=== PATIENT | female | born 1985 | race African-American/Black ===

== ENCOUNTER 2016-09-02 09:45 | Emergency (ER) | payer OTHER ==
[2016-09-02 09:49] VITALS: BMI 32.5
[2016-09-02] MEDS ORDERED: IBUPROFEN 600 MG TABLET (FP) PO ONE ×2 (10:18→10:19)
[2016-09-02 10:35] LABS: BASOPHIL 0.5 % (0-2.0); EOSINOPHIL 1.8 % (0-4.5); MCH 30.2 pg (25.7-33.7); MCHC 34.2 g/dl (32.0-36.0); MEAN CELL VOLUME 88.3 fl (80-96); MEAN PLT VOLUME 7.2 fl (7.5-11.1); NEUTROPHILS 44.9 % (42.8-82.8); PLATELET COUNT 265 K/MM3 (134-434); RDW 12.8 % (11.6-15.6); WHITE BLOOD COUNT 5.1 K/mm3 (4.0-10.0)
--- NOTE | 2016-09-02 12:42 | PDOC ---
History of Present Illness - General Chief Complaint: Vaginal Bleeding Stated Complaint: VAGINAL BLEEDING Time Seen by Provider: 09/02/16 10:07 History Source: Patient Exam Limitations: No Limitations - History of Present Illness Travel History: No Initial Comments: 09/02/16 11:58 HPI: This 31-year-old female presents to the emergency room with complaints of heavy vaginal bleeding. She had a menstrual period one month ago. She then had a menses days ago. She went to work and developed heavy vaginal bleeding 6 days with some clotting. She did not have any syncopal episode. She states that she has never had it this way before. She is . No recent miscarriage or Chief Compliant: Heavy vaginal bleeding PMH: Denies FH: Pt has not recently traveled outside the country in the last 30 days. Pt has not been in contact with people who have traveled out of the country, in contact with people who have been ill with fever, n, v, d. SH: smoking use: NONE illicit drug use: NONE alcohol use: NONE employment/educational status: sexual history: PSH: Hernia repair with mesh in 2014 Home med use noted on SEP Allergies: NKA Immunizations: PCP: Dr. Shelton STAIN DIPPER: Dr. Hodges LMP:currently starting 6 days ago. LMP prior to this is `08/01 Past History - Past Medical History Allergies/Adverse Reactions: Allergies Allergy/AdvReac Type Severity Reaction Status Date / Time No Known Allergies Allergy Verified 09/02/16 09:49 Home Medications: Ambulatory Orders NK [No Known Home Medication] 09/02/16 - Surgical History Abdominal Surgery: Yes - Psycho/Social/Smoking Cessation Hx Suicidal Ideation: No Smoking Status: No Smoking History: Never smoked Number of Cigarettes Smoked Daily: 0 Information on smoking cessation initiated: No Review of Systems - Review of Systems Able to Perform ROS?: Yes Comments:: 09/02/16 12:58 General statement: I have heavy vaginal bleeding Hematology: neg history of bleeding/blood thinners Skin: Neg for lesions, rash, bruising. HEENT: Neg symptoms Respiratory: Neg SOB or difficulty in breathing Cardiac: Neg chest pain GI: Neg pain, n/v : Neg problems on voiding MS: Neg for joint pain/stiffness, no edema Neuro: Neg for LOC, weakness, Endocrine: Neg for excess thirst/hunger, cold/heat intolerance, excess sweating Allergies: Neg for allergies *Physical Exam - Vital Signs Last Vital Signs Temp Pulse Resp BP Pulse Ox 98.1 F 107 H 18 141/96 98 09/02/16 09:46 09/02/16 09:46 09/02/16 09:46 09/02/16 09:46 09/02/16 09:46 - Physical Exam Comments: 09/02/16 12:59 General Appearance: This well appearing 31 year old obese black woman V/S: hemodynamically stable, afebrile Skin: WNL of pt's skin color, no signs of pallor, mottling, cyanosis Head:symmetrical Eyes: EOM's intact, PERRLA Ears: denies pain Nose: patent Throat: lips, teeth, gums, tongue, buccal mucos pink and moist Lungs: Chest symmetry equal. Cap refill <3 seconds. Lung sounds clear Cardiac: PMI at R 4MCL space, pos S1 and S2, regular rate. Abdomen: Soft, round, nontender but having cramping at lower abd area. : Not observed Muscularskeletal: Gait steady, ambulated in to ER, no edema +PMS Neuro: AAOx3, cognitively intact, speech clear and appropriate. ED Treatment Course - LABORATORY CBC & Chemistry Diagram: 09/02/16 10:25 - ADDITIONAL ORDERS Additional order review: Laboratory Results 09/02/16 09/02/16 10:25 10:25 Serum , Qual Negative Blood Type O POSITIVE Antibody Screen Negative 09/02/16 10:25 RBC 4.57 MCV 88.3 MCHC 34.2 RDW 12.8 MPV 7.2 L Neutrophils % 44.9 D Lymphocytes % 46.1 H D Monocytes % 6.7 Eosinophils % 1.8 Basophils % 0.5 - RADIOLOGY Radiology Studies Ordered: Category Date Time Status PELVIC / BLADDER US [US] Routine Ultrasound 09/02/16 Taken TRANSVAGINAL ULTRASOUND US [US] Stat Ultrasound 09/02/16 10:18 Ordered - Medications Given in the ED: ED Medications Discontinued Medications Generic Name Dose Route Start Last Admin Trade Name Freq PRN Reason Stop Dose Admin Ibuprofen 600 mg 09/02/16 10:19 09/02/16 10:36 Motrin - PO 09/02/16 10:20 Not Given ONCE ONE Medical Decision Making - Medical Decision Making 09/02/16 13:00 A/P: 31-year-old female with heavy vaginal bleeding 1. Transvaginal ultrasound for evaluation and possible fibroid. 2. Labs including hCG 09/02/16 13:01 Laboratory Tests 09/02/16 09/02/16 10:25 10:25 WBC 5.1 D Hgb 13.8 Hct 40.3 Plt Count 265 Serum , Qual Negative Transvaginal ultrasound shows thickening endometrial. Patient will be discharged at this time and told to follow-up with the STAIN DIPPER. *DC/Admit/Observation/Transfer Diagnosis at time of Disposition: Episode of heavy vaginal bleeding - Discharge Dispostion Disposition: HOME Condition at time of disposition: Good Admit: No - Referrals Referrals: STAFF,NOT ON [Primary Care Provider] - - Patient Instructions Printed Discharge Instructions: Heavy Menstrual Bleeding Additional Instructions: Discharge instructions 1. Please follow up with your primary physician within the next few days and explain that you have been seen here in the Emergency Room. Explain to your STAIN DIPPER that you have had a heavy menses and a report of a ultrasound to present to her. 2. If you experience any worsening of symptoms, such as lightheadness, please return to the ER 3. Rest, no sexual intercourse , 4. Drink plenty of water - Post Discharge Activity Work/School Note: Back to Work
[2016-09-02 12:47] LABS: URINE APPEARANCE CLEAR; URINE BILIRUBIN NEGATIVE (NEGATIVE); URINE COLOR LTYELLOW; URINE GLUCOSE (UA) NEGATIVE (NEGATIVE); URINE KETONE NEGATIVE (NEGATIVE); URINE LEUK ESTERASE NEGATIVE (NEGATIVE); URINE NITRITE NEGATIVE (NEGATIVE); URINE PROTEIN NEGATIVE (NEGATIVE); URINE UROBILINOGEN NEGATIVE E.U./dl (0.2-1.0)
[2016-09-02 12:48] LABS: URINE BLOOD 2+ (NEGATIVE)
[2016-09-02 12:49] LABS: URINE MUCUS FEW; URINE RBC 37 /hpf (0-3); URINE WBC <1 /hpf (3-5)
[2016-09-02 13:02] VITALS: BP 153/85; PULSE 85; TEMP 97.7
== END 2016-09-02 13:02 | disposition home or self-care (01) ==
LOC: JER 09:45
DX: N93.9 Abnormal uterine and vaginal bleeding, unspecified (principal)
CPT/HCPCS: 36415; 76830-TC; 76856-TC; 81003; 81015; 84703; 85025; 86850; 86900; 86901; 99283-25

== ENCOUNTER 2016-11-18 19:07 | Emergency (ER) | payer OTHER ==
[2016-11-18 19:38] VITALS: BP 132/80; PULSE 87; TEMP 97.8; BMI 32.5
[2016-11-18 21:11] LABS: BASOPHIL 0.6 % (0-2.0); EOSINOPHIL 0.2 % (0-4.5); MCH 29.2 pg (25.7-33.7); MCHC 33.1 g/dl (32.0-36.0); MEAN CELL VOLUME 88.1 fl (80-96); MEAN PLT VOLUME 7.1 fl (7.5-11.1); NEUTROPHILS 73.9 % (42.8-82.8); PLATELET COUNT 289 K/MM3 (134-434); RDW 13.1 % (11.6-15.6); WHITE BLOOD COUNT 7.9 K/mm3 (4.0-10.0)
[2016-11-18 21:36] LABS: ALBUMIN 4.2 g/dl (3.4-5.0); ALK PHOS 65 U/L (45-117); ANION GAP 7 (8-16); BILIRUBIN,TOTAL 0.4 mg/dL (0.2-1.0); CALCIUM 9.2 mg/dL (8.5-10.1); CO2 28 mmol/L (21-32); CREATININE 0.7 mg/dL (0.55-1.02); GLUCOSE,RANDOM 127 mg/dL (74-106); SGOT/AST 18 U/L (15-37); SGPT/ALT 31 U/L (12-78); TOT PROT 7.6 g/dl (6.4-8.2)
--- NOTE | 2016-11-18 21:58 | PDOC ---
History of Present Illness - General History Source: Patient Exam Limitations: No Limitations - History of Present Illness Initial Comments: 11/18/16 22:09 The patient is a 31 year old female with significant past medical history of migraine headaches who presents to the ED for worsening migraine headache. Patient reports long history of migraine headache, which she follows up with Dr. Estrada. States she went today for botox injections for relief of her migranes, but still no relief. Patient reports she went to Dr. Barrett office last week for steroid injections with no relief. She also has complaints of mild abdominal discomfort and nausea, but no vomiting. Denies dizziness or photophobia. States her stomach is sensitive and that most food and medications causes irritation and thus results in vomiting. The patient denies fever, chills, cough, SOB, chest pain, and diarrhea. Allergies: NKDA Social History: No alcohol, tobacco, or drug use reported. Past Surgical History: Hernia repair with mesh in 2014 PCP: Dr. Shelton Neurologist: Dr. Jhonny Estrada <Daniela Lewis - Last Filed: 11/18/16 22:09> - General History Source: Patient <LoMihai - Last Filed: 11/18/16 23:12> - General Chief Complaint: Migraine Headache Stated Complaint: PCP SENT/MIGRAINE Time Seen by Provider: 11/18/16 21:53 Past History <Daniela Lewis - Last Filed: 11/18/16 22:09> - Past Medical History Other medical history: botox injections - Surgical History Abdominal Surgery: Yes - Psycho/Social/Smoking Cessation Hx Suicidal Ideation: No Smoking Status: No Smoking History: Never smoked Have you smoked in the past 12 months: No Number of Cigarettes Smoked Daily: 0 Information on smoking cessation initiated: No Hx Alcohol Use: No Drug/Substance Use Hx: No <Mihai Blanchard - Last Filed: 11/18/16 23:12> - Past Medical History Allergies/Adverse Reactions: Allergies Allergy/AdvReac Type Severity Reaction Status Date / Time No Known Allergies Allergy Verified 11/18/16 19:37 Home Medications: Ambulatory Orders Acetaminophen/Caffeine/Butalb [Fioricet -] 1 tab PO Q6H #28 tablet MDD 4 Ibuprofen 800 mg PO TID #30 tablet 05/17/17 Metoclopramide HCl [Reglan -] 10 mg PO TID #30 tablet 11/18/16 Review of Systems - Review of Systems Able to Perform ROS?: Yes Comments:: 11/18/16 22:09 CONSTITUTIONAL: Absent: fever, no chills, no fatigue EYES: Absent: visual changes ENT: Absent: ear pain, no sore throat CARDIOVASCULAR: Absent: chest pain, no palpitations RESPIRATORY: Absent: cough, no SOB GI: +abdominal discomfort, nausea Absent: no vomiting, no constipation, no diarrhea GENITOURINARY: Absent: dysuria, no frequency, no hematuria MUSCULOSKELETAL: Absent: back pain, no arthralgia, no myalgia SKIN: Absent: rash NEURO: +headache <Daniela Lewis - Last Filed: 11/18/16 22:09> *Physical Exam - Vital Signs Last Vital Signs Temp Pulse Resp BP Pulse Ox 97.8 F 87 18 132/80 99 11/18/16 19:35 11/18/16 19:35 11/18/16 19:35 11/18/16 19:35 11/18/16 19:35 - Physical Exam Comments: 11/18/16 22:09 GENERAL: Well-appearing, well-nourished. No apparent distress. HEENT: Normocephalic, atraumatic. PERRL, EOM intact. CARDIOVASCULAR: Normal S1, S2. Regular rate and rhythm. PULMONARY: Clear to auscultation bilaterally. ABDOMEN: Soft, non-distended, non-tender. EXTREMITIES: Normal ROM in all four extremities. No gross deformities. SKIN: Warm, dry. No rash NEUROLOGICAL: No focal neurological deficits. <Daniela Lewis - Last Filed: 11/18/16 22:09> - Vital Signs Last Vital Signs Temp Pulse Resp BP Pulse Ox 97.8 F 87 18 132/80 99 11/18/16 19:35 11/18/16 19:35 11/18/16 19:35 11/18/16 19:35 11/18/16 19:35 <Mihai Blnachard - Last Filed: 11/18/16 23:12> ED Treatment Course - LABORATORY CBC & Chemistry Diagram: 11/18/16 21:00 11/18/16 21:00 - ADDITIONAL ORDERS Additional order review: Laboratory Results 11/18/16 11/18/16 21:00 21:00 Sodium 141 Potassium 4.4 Chloride 106 Carbon Dioxide 28 D Anion Gap 7 L BUN 10 D Creatinine 0.7 D Creat Clearance w eGFR > 60 Random Glucose 127 H Calcium 9.2 Total Bilirubin 0.4 AST 18 D ALT 31 Alkaline Phosphatase 65 D Total Protein 7.6 Albumin 4.2 Serum , Qual Negative 11/18/16 21:00 RBC 4.66 MCV 88.1 MCHC 33.1 RDW 13.1 MPV 7.1 L Neutrophils % 73.9 D Lymphocytes % 20.3 D Monocytes % 5.0 Eosinophils % 0.2 D Basophils % 0.6 <Daniela Lewis - Last Filed: 11/18/16 22:09> - LABORATORY CBC & Chemistry Diagram: 11/18/16 21:00 11/18/16 21:00 - ADDITIONAL ORDERS Additional order review: Laboratory Results 11/18/16 11/18/16 21:00 21:00 Sodium 141 Potassium 4.4 Chloride 106 Carbon Dioxide 28 D Anion Gap 7 L BUN 10 D Creatinine 0.7 D Creat Clearance w eGFR > 60 Random Glucose 127 H Calcium 9.2 Total Bilirubin 0.4 AST 18 D ALT 31 Alkaline Phosphatase 65 D Total Protein 7.6 Albumin 4.2 Serum , Qual Negative 11/18/16 21:00 RBC 4.66 MCV 88.1 MCHC 33.1 RDW 13.1 MPV 7.1 L Neutrophils % 73.9 D Lymphocytes % 20.3 D Monocytes % 5.0 Eosinophils % 0.2 D Basophils % 0.6 <Mihai Blanchard - Last Filed: 11/18/16 23:12> Medical Decision Making - Medical Decision Making 11/18/16 23:11 Dr. Blanchard: The scribe's documentation has been prepared under my direction and personally reviewed by me in its entirery. I confirm that the note above accurately reflects all work, treatment, procedures, and medical decision making performed by me. Pt feels better after treatment in the department. Pt will be discharge and follow up with her neurologist <Mihai Blanchard - Last Filed: 11/18/16 23:12> *DC/Admit/Observation/Transfer - Attestations Scribe Attestion: 11/18/16 22:09 Documentation prepared by Daniela Lewis, acting as medical laboratory technicians for Mihai Blanchard MD/DO. <Daniela Lewis - Last Filed: 11/18/16 22:09> - Discharge Dispostion Admit: No <Mihai Blanchard - Last Filed: 11/18/16 23:12> Diagnosis at time of Disposition: Migraine Qualifiers: Migraine type: other Status migrainosus presence: without status migrainosus Intractability: not intractable Qualified Code(s): G43.809 - Other migraine, not intractable, without status migrainosus - Discharge Dispostion Disposition: HOME Condition at time of disposition: Stable - Prescriptions Prescriptions: Acetaminophen/Caffeine/Butalb [Fioricet -] 1 tab PO Q6H #28 tablet MDD 4 Ibuprofen 800 mg PO TID #30 tablet Metoclopramide HCl [Reglan -] 10 mg PO TID #30 tablet - Referrals Referrals: STAFF,NOT ON [Primary Care Provider] - Ceasar House MD [Staff Physician] - - Patient Instructions Printed Discharge Instructions: DI for Migraine
[2016-11-18] MEDS ORDERED: KETOROLAC TROMETHAMINE 30 MG/1 ML VIAL IVPUSH ONE (21:59)
[2016-11-18] MEDS ORDERED: METOCLOPRAMIDE HCL INJECTION 10 MG/2 ML VIAL IVPUSH ONE (21:59)
[2016-11-18] MEDS ORDERED: METOCLOPRAMIDE HCL INJECTION 10 MG/2 ML VIAL ONE (22:12)
[2016-11-18] MEDS ORDERED: KETOROLAC TROMETHAMINE 30 MG/1 ML VIAL ONE (22:13)
== END 2016-11-18 23:36 | disposition home or self-care (01) ==
LOC: JER 19:07
PROC: 3E0333Z Introduction of Anti-inflammatory into Peripheral Vein, Percutaneous Approach (ICD-10-PCS; principal; 2016-11-18)
DX: G43.809 Other migraine, not intractable, without status migrainosus (principal)
CPT/HCPCS: 36415; 80053; 84703; 85025; 99281-25

== ENCOUNTER 2017-08-30 14:27 | Emergency (ER) | payer OTHER ==
--- NOTE | 2017-08-30 14:31 | PDOC ---
Rapid Medical Evaluation Time Seen by Provider: 08/30/17 14:29 Medical Evaluation: Allergies Allergy/AdvReac Type Severity Reaction Status Date / Time No Known Allergies Allergy Verified 11/18/16 19:37 08/30/17 14:29 I have performed a brief in person evaluation of this patient. The patient presents with chief complaint of : left lower quadrant pain radiates to flank. LMP 4 weeks ago . pt has history of kidney stones, feels similair. Pertinent PE findings: none, pt appears comfortable I have ordered the following: UA, urine preg, urine culture The patient will proceed to the ER for further evaluation.
[2017-08-30 14:33] VITALS: BMI 31.6
[2017-08-30 15:39] LABS: URINE APPEARANCE CLEAR; URINE BILIRUBIN NEGATIVE (NEGATIVE); URINE BLOOD NEGATIVE (NEGATIVE); URINE COLOR YELLOW; URINE GLUCOSE (UA) NEGATIVE (NEGATIVE); URINE KETONE NEGATIVE (NEGATIVE); URINE LEUK ESTERASE NEGATIVE (NEGATIVE); URINE NITRITE NEGATIVE (NEGATIVE); URINE PROTEIN NEGATIVE (NEGATIVE)
--- NOTE | 2017-08-30 16:26 | PDOC ---
History of Present Illness - General Chief Complaint: Pain, Acute Stated Complaint: KIDNEY PAIN Time Seen by Provider: 08/30/17 14:29 - History of Present Illness Initial Comments: 08/30/17 16:19 32 y.o. female with a PMH of nephrolithiasis (last episode 8 months previous) who presents to our ED c/o 3 day h/o of intermittent, cramping, 4/10, L flank pain that radiates into her groin. Patient denies any associated dysuria/ hematuria, fever/chills, nausea/vomiting, diarrhea/constipation. Patient's LMP was 08/19 and she denies any possibility of . NKDA Surgical: C/S x2, Ventral Hernia Repair Social: denies alcohol, denies nicotine, denies recreational drugs Past History - Past Medical History Allergies/Adverse Reactions: Allergies Allergy/AdvReac Type Severity Reaction Status Date / Time No Known Allergies Allergy Verified 08/30/17 14:30 COPD: No Disorders: Yes (kidney stones) Psychiatric Problems: Yes (anxiety) - Surgical History Abdominal Surgery: Yes (hernia) - Immunization History Immunization Up to Date: Yes - Suicide/Smoking/Psychosocial Hx Smoking Status: No Smoking History: Never smoked Have you smoked in the past 12 months: No Number of Cigarettes Smoked Daily: 0 Information on smoking cessation initiated: No Hx Alcohol Use: No Drug/Substance Use Hx: No Substance Use Type: None Review of Systems - Review of Systems Constitutional: No: Chills, Fever HEENTM: No: Blurred Vision, Double Vision Respiratory: No: Cough, Shortness of Breath Cardiac (ROS): No: Chest Pain, Lightheadedness, Palpitations, Syncope ABD/GI: No: Constipated, Diarrhea, Nausea, Vomiting : Yes: Flank Pain. No: Burning, Dysuria Neurological: No: Headache, Numbness Psychiatric: No: Anxiety, Depression *Physical Exam - Vital Signs Last Vital Signs Temp Pulse Resp BP Pulse Ox 98.6 F 90 18 118/84 100 08/30/17 14:30 08/30/17 14:30 08/30/17 14:30 08/30/17 14:30 08/30/17 14:30 - Physical Exam Comments: 08/30/17 18:52 GENERAL: Awake, alert, and fully oriented, in no acute distress HEAD: No signs of trauma EYES: PERRLA, EOMI, sclera anicteric, conjunctiva clear ENT: Auricles normal inspection, Moist mucosa NECK: Normal ROM, supple, no lymphadenopathy, JVD, or masses LUNGS: Breath sounds equal, clear to auscultation bilaterally. No wheezes, and no crackles HEART: Regular rate and rhythm, normal S1 and S2, no murmurs, rubs or gallops ABDOMEN: RLQ TTP on deep palpation, Soft, normoactive bowel sounds. No guarding , no rebound. No masses EXTREMITIES: Normal range of motion, no edema. No clubbing or cyanosis. BACK: No midline spinal tenderness in cervical/thoracic/lumbar region NEUROLOGICAL: A&O x3, non-ataxic, non-antalgic gait SKIN: Warm, Dry, normal turgor, no rashes or lesions noted. ED Treatment Course - ADDITIONAL ORDERS Additional order review: Laboratory Results 08/30/17 15:20 Urine Color Yellow Urine Appearance Clear Urine pH 5.0 Ur Specific [place] 1.027 Urine Protein Negative Urine Glucose (UA) Negative Urine Ketones Negative Urine Blood Negative Urine Nitrite Negative Urine Bilirubin Negative Urine Urobilinogen 2.0 H Ur Leukocyte Esterase Negative Medical Decision Making - Medical Decision Making 08/30/17 17:23 32 y.o. female who presents with a c/o L sided flank pain that radiates to her groin, however on PE patient has mild tenderness to palpation in epigastrium. UA ordered in triage shows no WBC, Leukocyte Esterase (-), Nitrite (-). Will obtain renal U/S to r/o nephrolithiasis. 08/30/17 18:28 Renal U/S shows no hydronephrosis, nephrolithiasis, or acute pathology. Patient ambulatory around unit, expresses desire for discharge. Patient counseled on return precautions and instructed to follow-up with PCP. I discussed the physical exam findings, ancillary test results and final diagnoses with the patient. I answered all of the patient's questions. The patient was satisfied with the care received and felt comfortable with the discharge plan and treatment plan. The patient will return to the Emergency Department with any new, persistent or worsening symptoms. *DC/Admit/Observation/Transfer Diagnosis at time of Disposition: Flank pain - Discharge Dispostion Disposition: HOME Condition at time of disposition: Good Admit: No - Referrals Referrals: ON STAFF,NOT [Primary Care Provider] - - Patient Instructions Printed Discharge Instructions: DI for Abdominal Pain-Adult, DI for Flank Pain Additional Instructions: You were evaluated today for flank pain that radiated to your groin. All of your labs as well as your ultrasound showed no concerning findings. Follow up with your primary care doctor for further evaluation in the next 3 days. Please return to the Emergency Department for any new/worsening/concerning symptoms. - Post Discharge Activity
[2017-08-30 18:36] VITALS: BP 110/71; PULSE 72; TEMP 98.4
[2017-08-31 08:48] LABS: HCG,QUALITATIVE URINE NEGATIVE
== END 2017-08-30 18:37 | disposition home or self-care (01) ==
LOC: JER 14:27
DX: R10.32 Left lower quadrant pain (principal); F41.9 Anxiety disorder, unspecified
CPT/HCPCS: 76775-TC; 81003; 84703; 87086; 99284-25

== ENCOUNTER 2019-03-30 12:22 | Emergency (ER) | payer OTHER ==
[2019-03-30 12:34] VITALS: BP 128/83; PULSE 89; TEMP 98.3; BMI 31.1
--- NOTE | 2019-03-30 13:01 | PDOC ---
History of Present Illness - General Chief Complaint: Lightheaded Stated Complaint: HYPERTENSION Time Seen by Provider: 03/30/19 12:46 History Source: Patient Exam Limitations: No Limitations - History of Present Illness Initial Comments: 03/30/19 12:59 34y F hx of migraine headache presents with complaint of dizziness. Pt was in her usual state of health until she was at school and suddenly felt lightheadd, lsating for a few min before resolving. Pt denies any associated vision changes , headache, palpitations, chest pain, n/v, diarrhea, melena, bpr, abd pain, back pain, neck pain, vertigo. Pt is curently asymptomatic. Pt has had episodes of syncop in the past where she felt the same, but there was no syncope today.. P note she is currently on her menses. Pt does endorse a mild presur elike R side headache currently. Past History - Past Medical History Allergies/Adverse Reactions: Allergies Allergy/AdvReac Type Severity Reaction Status Date / Time No Known Allergies Allergy Verified 03/30/19 12:34 COPD: No Disorders: Yes (kidney stones) Psychiatric Problems: Yes (anxiety) - Surgical History Abdominal Surgery: Yes (hernia) - Immunization History Immunization Up to Date: Yes - Psycho Social/Smoking Cessation Hx Smoking Status: No Smoking History: Never smoked Have you smoked in the past 12 months: No Number of Cigarettes Smoked Daily: 0 Information on smoking cessation initiated: No Hx Alcohol Use: No Drug/Substance Use Hx: No Substance Use Type: None Review of Systems - Review of Systems Able to Perform ROS?: Yes Comments:: 03/30/19 13:55 Constitutional - no reported Fever, Chills, HEENT: no reported vision changes, sore throat Respiratory: no reported cough, sob, hemoptysis Cardiac: no reported chest pain, palpitations, light headedness, leg swelling Abd/GI: no reported abd pain, nausea, vomiting, blood per rectum, melena, diarrhea : no reported dysuria, frequency, discharge Musculskelatal - no reported back pain, joint swelling skin - no reported bruising, erythema, rash neurological: no reported headache, numbness, focal weakness, tingling, ataxia, hematologic: no reported easy bruising, easy bleeding *Physical Exam - Vital Signs Last Vital Signs Temp Pulse Resp BP Pulse Ox 98.3 F 89 18 128/83 98 03/30/19 12:29 03/30/19 12:29 03/30/19 12:29 03/30/19 12:29 03/30/19 12:29 - Physical Exam Comments: 03/30/19 13:56 GENERAL: The patient is awake, alert, and fully oriented, Nontoxic - in no acute distress. HEAD: Normocephalic, atraumatic. EYES: extraocular movements intact, sclera anicteric, conjunctiva clear. ENT: Normal voice, Moist mucous membranes. NECK: Normal range of motion, supple LUNGS: Breath sounds equal, clear to auscultation bilaterally. No wheezes, no rhonchi, no rales. HEART: Regular rate and rhythm, normal S1 and S2 without murmur, rub or gallop. ABDOMEN: Soft, nontender, No guarding, no rebound. No CVA tenderness EXTREMITIES: Normal range of motion, no edema. NEUROLOGICAL: No facial assymetry, Normal speech, PSYCH: Normal mood, normal affect. SKIN: Warm, Dry, normal turgor, Heart Score/ECG Review - ECG Impressions Comment:: 03/30/19 15:23 Twelve-lead EKG was performed and reviewed by me. There is normal sinus rhythm with a normal rate. The axis is normal. rate of 82 qtc of [address] changes ED Treatment Course - LABORATORY CBC & Chemistry Diagram: 03/30/19 13:52 03/30/19 13:52 Medical Decision Making - Medical Decision Making 03/30/19 13:56 posible mild vagal episode will ck basic labs to r/o anemia, metabolic derangement, ekg to screen for arrtyhmia Discharge - Discharge Information Problems reviewed: Yes Clinical Impression/Diagnosis: Lightheaded Condition: Improved Disposition: HOME - Admission No - Follow up/Referral Referrals: Rafy Torres MD [Primary Care Provider] - - Patient Discharge Instructions Patient Printed Discharge Instructions: DI for Syncope in Adults (Fainting) Additional Instructions: Return to the emergency department immediately with ANY new, persistent or worsening symptoms. You MUST call and follow up with your doctor tomorrow for further evaluation of your symptoms. Results were discussed with you. Please make sure your doctor reviews the results of your emergency evaluation. Your Emergency Department visit is not complete without a follow up with your doctor. If you had any xrays during your visit, it was read preliminarily by myself, a Radiologist will review it and if there are any additional findings we will call you. Print Language: [place]THER[place] IRISH - Post Discharge Activity
[2019-03-30] MEDS ORDERED: METOCLOPRAMIDE HCL INJECTION 10 MG/2 ML VIAL IVPUSH ONE (13:05)
[2019-03-30] MEDS ORDERED: METOCLOPRAMIDE HCL 10 MG TABLET (FP) PO ONE (13:33)
--- NOTE | 2019-03-30 13:58 | EKG ---
Test Reason : Blood Pressure : / mmHG Vent. Rate : 082 BPM Atrial Rate : 082 BPM P-R Int : 172 ms QRS Dur : 102 ms QT Int : 424 ms P-R-T Axes : 053 -01 030 degrees QTc Int : 495 ms NORMAL SINUS RHYTHM MINIMAL VOLTAGE CRITERIA FOR LVH, MAY BE NORMAL VARIANT NONSPECIFIC ST AND T WAVE ABNORMALITY PROLONGED QT ABNORMAL ECG NO PREVIOUS ECGS AVAILABLE Confirmed by SUKHI HANSON MD ([id number]) on 03/30/2019 1:58:00 PM Referred By: Confirmed By:SUKHI HANSON MD
[2019-03-30 14:04] LABS: BASO % 0.6 % (0-2.0); EOS % 1.1 % (0-4.5); HEMATOCRIT 37.5 % (32.4-45.2); HEMOGLOBIN 12.9 GM/dL (10.7-15.3); LYMPH % 26.9 % (8-40); MCH 30.6 pg (25.7-33.7); MCHC 34.4 g/dl (32.0-36.0); MEAN CELL VOLUME 88.9 fl (80-96); MEAN PLT VOLUME 7.1 fl (7.5-11.1); MONO % 6.5 % (3.8-10.2); NEUT % 64.9 % (42.8-82.8); PLATELET COUNT 280 K/MM3 (134-434); RBC 4.22 M/mm3 (3.60-5.2); RDW 13.7 % (11.6-15.6); WHITE BLOOD COUNT 6.1 K/mm3 (4.0-10.0)
[2019-03-30] MEDS ORDERED: ONDANSETRON *ODT* 4 MG TABLET ONE (14:37)
[2019-03-30 14:39] LABS: ALBUMIN 4.1 g/dl (3.4-5.0); BILIRUBIN,TOTAL 0.2 mg/dL (0.2-1); BLOOD UREA NITROGEN 9.7 mg/dL (7-18); CALCIUM 9.1 mg/dL (8.5-10.1); CREATININE 0.7 mg/dL (0.55-1.3); POTASSIUM 4.1 mmol/L (3.5-5.1); TOT PROT 7.1 g/dl (6.4-8.2)
== END 2019-03-30 15:47 | disposition home or self-care (01) ==
LOC: JER 12:22
DX: R42 Dizziness and giddiness (principal); I10 Essential (primary) hypertension; F41.9 Anxiety disorder, unspecified; Z87.442 Personal history of urinary calculi
CPT/HCPCS: 36415; 80053; 84703; 85025; 93005; 93010; 99283-25

== ENCOUNTER 2020-07-03 12:05 | Emergency (ER) | payer OTHER ==
[2020-07-03 12:20] VITALS: BP 123/86; PULSE 74; TEMP 97.9; BMI 31.6
[2020-07-03] MEDS ORDERED: METOCLOPRAMIDE HCL INJECTION 10 MG/2 ML VIAL IVPB ONE (12:29)
[2020-07-03] MEDS ORDERED: MAG HYDROX/AL HYDROX/SIMETH -MYLANTA- ORAL SUSPENSION PO ONE (12:31)
[2020-07-03] MEDS ORDERED: METOCLOPRAMIDE HCL INJECTION 10 MG/2 ML VIAL ONE (12:33)
[2020-07-03] MEDS ORDERED: MAG HYDROX/AL HYDROX/SIMETH 30 ML UNIT-DOSE CUP ONE (12:33)
== END 2020-07-03 13:02 | disposition home or self-care (01) ==
LOC: JERFT 12:05
PROC: 3E033GC Introduction of Other Therapeutic Substance into Peripheral Vein, Percutaneous Approach (ICD-10-PCS; principal; 2020-07-03)
DX: R51.9 Headache, unspecified (principal)
CPT/HCPCS: 99284-25

== ENCOUNTER 2022-01-10 20:57 | Emergency (ER) | payer OTHER ==
[2022-01-10 21:18] VITALS: BP 140/86; PULSE 80; TEMP 98.2; BMI 32.1
[2022-01-10] MEDS ORDERED: FAMOTIDINE 20 MG TABLET PO ONE (23:52)
[2022-01-10] MEDS ORDERED: CIPROFLOXACIN 500 MG TABLET (RESTRICTED TO ID) PO ONE (23:52)
[2022-01-10] MEDS ORDERED: LOPERAMIDE HCL 2 MG CAPSULE PO ONE (23:52)
[2022-01-11] MEDS ORDERED: FAMOTIDINE 20 MG TABLET ONE (00:04)
[2022-01-11] MEDS ORDERED: LOPERAMIDE HCL 2 MG CAPSULE ONE (00:06)
== END 2022-01-11 00:20 | disposition home or self-care (01) ==
LOC: JER 20:57
DX: R19.7 Diarrhea, unspecified (principal)
CPT/HCPCS: 99283-25

== ENCOUNTER 2024-04-03 00:26 | Emergency (ER) | payer OTHER ==
[2024-04-03 00:42] VITALS: BP 141/89; PULSE 89; RESP 18; TEMP 98.4; BMI 32.5
[2024-04-03 02:12] LABS: BASO % 0.7 % (0-2.0); EOS % 2.8 % (0-4.5); HEMOGLOBIN 10.9 GM/dL (10.7-15.3); LYMPH % 31.4 % (8-40); MCH 26.2 pg (25.7-33.7); MEAN CELL VOLUME 79.3 fl (80-96); MEAN PLT VOLUME 6.4 fl (7.5-11.1); MONO % 7.8 % (3.8-10.2); NEUT % 57.3 % (42.8-82.8); PLATELET COUNT 308 10^3/uL (134-434); RBC 4.16 M/mm3 (3.60-5.2); RDW 16.2 % (11.6-15.6); WHITE BLOOD COUNT 6.1 K/mm3 (4.0-10.0)
[2024-04-03 02:37] LABS: POTASSIUM 3.7 mmol/L (3.5-5.1)
[2024-04-03 02:40] LABS: ALBUMIN 3.5 g/dl (3.4-5.0); BLOOD UREA NITROGEN 11.4 mg/dL (7-18); CALCIUM 8.6 mg/dL (8.5-10.1)
[2024-04-03 02:43] LABS: CREATININE 0.7 mg/dL (0.55-1.3)
[2024-04-03 02:45] LABS: BILIRUBIN,TOTAL 0.2 mg/dL (0.2-1); TOT PROT 6.7 g/dl (6.4-8.2)
== END 2024-04-03 03:38 | disposition home or self-care (01) ==
LOC: JER 00:26
DX: R07.2 Precordial pain (principal); Z20.822 Contact with and (suspected) exposure to COVID-19
CPT/HCPCS: 0241U-QW; 36415; 71046-TC-FY; 80053; 84484; 84703; 85025; 93005; 93010; 99285-25

== ENCOUNTER 2025-04-23 15:30 | Day surgery (SDC) | payer OTHER ==
[2025-04-23] MEDS: ONDANSETRON 4 MG TABLET PO ONE (16:09)
[2025-04-23] MEDS: FERRIC CARBOXYMALTOSE 750 MG in SODIUM CHLORIDE 250 ML IVPB ONE (16:18)
[2025-04-23 16:44] VITALS: TEMP 98.3
[2025-04-23 17:17] VITALS: BP 115/71; PULSE 60; RESP 20
== END 2025-04-23 17:22 | disposition home or self-care (01) ==
LOC: J7W 15:30 → JONCNONCHE 15:30
PROVIDERS: ATTEND Internal Medicine Hematology & Oncology
PROC: 3E033GC Introduction of Other Therapeutic Substance into Peripheral Vein, Percutaneous Approach (ICD-10-PCS; principal; 2025-04-23)
DX: D50.9 Iron deficiency anemia, unspecified (principal)
CPT/HCPCS: 96365; J1439